=== PATIENT | male | born 2000 | race Caucasian/White ===

== ENCOUNTER 2021-12-23 17:13 | Emergency (ER) | payer BC ==
[2021-12-23 19:22] LABS: Bilirubin Negative (Negative); Blood, Urine Negative (Negative); Clarity Clear (Clear); Glucose, Urine (Dipstick) 70 mg/dL (Negative); Ketone, Urine Negative (Negative); Leukocyte Negative Leu/uL (Negative); Nitrite Negative (Negative); Protein, Urine (Dipstick) Negative (Neg-Trace); Specific Gravity, Urine 1.017 (1.002-1.036); Urobilinogen 3 mg/dL (Less than 2)
[2021-12-23] MEDS ORDERED: Lidocaine 1% PF 5 ML VIAL ONE (19:36)
[2021-12-23] MEDS ORDERED: cefTRIAXone\\ROCEPHIN 500 MG VIAL ONE (19:36)
[2021-12-24 01:12] LABS: Chlam.trachomatis by PCR,Urine Not Detected (NotDetected)
== END 2021-12-23 20:09 | disposition home or self-care (01) ==
LOC: ERS 17:13
DX: N43.1 Infected hydrocele (principal); N45.1 Epididymitis
CPT/HCPCS: 76870; 81003; 87086; 87491; 87591; 93976; 96372; J0696